=== PATIENT | female | born 1960 | race Caucasian/White ===

== ENCOUNTER → 2016-06-22 | Outpatient (CLI) | payer OTHER ==
[2016-06-22 21:09] LABS: FREE T4 0.86 NG/DL (0.76-1.46); THYROXINE (T4) 8.9 UG/DL (4.5-12.0)
[2016-06-25 10:20] LABS: PROLACTIN 3.7 NG/ML
[2016-06-25 10:21] LABS: LUTEINIZING HORMONE 20.1 mIU/mL
[2016-06-25 10:22] LABS: FOLLICLE STIMULATING HORMONE 38.5 mIU/mL
== END ==
LOC: M LRY 16:16
PROVIDERS: ATTEND Nurse Practitioner Women's Health
DX: N92.6 Irregular menstruation, unspecified (principal)

== ENCOUNTER → 2016-08-06 | Outpatient (CLI) | payer OTHER ==
--- NOTE | 2016-08-06 09:35 | REPMRS ---
Patient History The patient states she had a clinical breast exam in 2016. No known family history of cancer. Benign core biopsy of the right breast, 2010. Took hormonal contraceptives for 6 years. Digital Mammo Screening Bilat: August 06, 2016 - Exam #: [id number] Bilateral CC and MLO view(s) were taken. Technologist: Kait Barr, Technologist Prior study comparison: August 05, 2015, digital bilateral screening mammo, performed at [facility]. May 05, 2013, bilateral digital mammo screening bilat performed at [facility]. FINDINGS: The breast tissue is heterogeneously dense. This may lower the sensitivity of mammography. There is a moderate amount of heterogeneously dense fibroglandular tissue which is fairly symmetric. There is a stable mass projecting in the inferomedial quadrant of the right breast containing a calcification and a previously placed needle biopsy marker clip unchanged. There is no interval development of dominant mass, architectural distortion, or clustered microcalcification typical of malignancy. There has been no change in the appearance of the mammogram from the prior studies. ASSESSMENT: BI-RADS/ACR category 1 mammogram. Negative. Recommendation Routine screening mammogram of both breasts in 1 year (for women over age 40). This mammogram was interpreted with the aid of an FDA-approved computer-aided dectection system. Electronically Signed By: Kaiden Martinez MD 08/06/16 0934
== END ==
LOC: M RAD 08:36
PROVIDERS: ATTEND Nurse Practitioner Women's Health
DX: Z12.39 Encounter for other screening for malignant neoplasm of breast (principal); Z92.0 Personal history of contraception

== ENCOUNTER → 2018-07-07 | Outpatient (CLI) | payer OTHER ==
--- NOTE | 2018-07-07 16:01 | REP ---
BILATERAL SCREENING MAMMOGRAM WITH 3D TOMOSYNTHESIS: Bilateral screening mammogram with 3D tomosynthesis performed. Comparison 08/06/3016 as well as other prior exams. Breast parenchyma is heterogeneously dense limiting the sensitivity of the mammogram. Metallic clips are again seen in the inferomedial right breast from a prior benign biopsy. No new findings are seen in the right breast. In the left breast laterally at about 3 to 4 o'clock there is a fairly well circumscribed nodule 1.3 cm in diameter, located in the mid third of the breast. On the left MLO view posteriorly there is a partially imaged nodular opacity with the imaged portion having a maximum diameter of 1.4 cm. Margins are slightly irregular. No clustered microcalcifications are seen bilaterally. IMPRESSION: BIRADS 0: BI-RADS/ACR category 0 mammogram, Incomplete: Need additional imaging evaluation and/or prior mammograms for comparison. In the left breast at 3 to 4 o'clock position there is a well circumscribed nodule 1.3 cm in diameter. Recommend spot compression views and ultrasound to further evaluate. Far posteriorly on the left MLO view a partially imaged nodular opacity is seen, with the visualized portion having a maximum diameter of 1.4 cm. Visualized margins are slightly irregular. Recommend repeat left MLO and axillary CC views, with other views possibly necessary. This mammogram was interpreted with the aid of an FDA-approved computer-aided detection system. The patient states she/he had a clinical breast exam in 07/2018. The patient letter being requested is M0. iJmmy lifetime risk of breast cancer 10.9%. Electronically Signed by Shahriar Nagy MD 07/08/2018 10:25 A
== END ==
LOC: M RAD 13:33
PROVIDERS: ATTEND Nurse Practitioner Women's Health
DX: Z12.31 Encounter for screening mammogram for malignant neoplasm of breast (principal); N63.20 Unspecified lump in the left breast, unspecified quadrant

== ENCOUNTER → 2018-07-24 | Outpatient (CLI) | payer OTHER ==
--- NOTE | 2018-07-24 10:41 | REP ---
DIAGNOSTIC MAMMOGRAM, LEFT BREAST WITH LEFT BREAST ULTRASOUND: Multiple additional views of the left breast are performed including repeat left MLO view as well as exaggerated medial and lateral CC views. Correlation made with the recent mammogram of 07/07/2018 and compared with multiple other prior studies dating back to 02/21/2007. A fairly well-circumscribed nodule is confirmed in the region of the 3-o'clock position of the left breast about 4-5 cm from the nipple. Visualized margins are fairly well-circumscribed but some of the margins are obscure by the adjacent dense fibroglandular tissue. More posteriorly, in the inferior left axillary tail region, once again, there is a partially imaged nodular opacity which demonstrates mildly irregular margins. This is only seen on the repeat left MLO view and cannot be identified on any other view. Approximated diameter is 1.5 cm. Real-time sonographic evaluation of the outer left breast is performed to evaluate these two nodules. At the 3-o'clock position, 4-5 cm from the nipple there are two adjacent cysts measuring 1.0 and 0.9 cm, benign. However, more posteriorly, there is a heterogenous hypoechoic mass with mildly irregular margins and internal arterial flow with duplex Doppler evaluation. This is approximately 9 cm from the nipple and corresponds to the partially imaged nodule on the left MLO view. It measures 1.8 x 1.6 x 1.7 cm. This appears suspicious. IMPRESSION: BIRADS 4: BI-RADS/ACR category 4 mammogram. Suspicious Abnormality - biopsy should be considered. An anterior nodule in the lateral left breast corresponds to a simple benign cyst. However, posteriorly and somewhat inferiorly, in the region of the left axillary tail, the nodule partially seen on mammography represent a solid suspicious mass by ultrasound. Recommend ultrasound-guided biopsy with clip placement. Postprocedure mammogram should be performed. Patient letter M4. Electronically Signed by Shahriar Nagy MD 07/24/2018 04:01 P
== END ==
LOC: M RAD 08:53
PROVIDERS: ATTEND Nurse Practitioner Women's Health
DX: R92.2 Inconclusive mammogram (principal)

== ENCOUNTER → 2018-10-23 | Outpatient (REF) | payer OTHER ==
[2018-10-23 10:26] LABS: ALBUMIN 3.6 GM/DL (3.2-5.2); ALT/SGPT 24 U/L (12-78); BILIRUBIN,TOTAL 0.3 MG/DL (0.2-1.0); BLOOD UREA NITROGEN 10 MG/DL (7-18); CALCIUM LEVEL 9.4 MG/DL (8.5-10.1); CARBON DIOXIDE LEVEL 30 MEQ/L (21-32); CHLORIDE LEVEL 108 MEQ/L (98-107); CHOLESTEROL LEVEL 181 MG/DL (<200); CHOLESTEROL RISK RATIO 4.113 (<5); CREATININE FOR GFR 0.63 MG/DL (0.55-1.30); GLOMERULAR FILTRATION RATE > 60.0 (>51); GLUCOSE, FASTING 86 MG/DL (70-100); HDL CHOLESTEROL 44 MG/DL (>40); LDL CHOLESTEROL 115 MG/DL (<100); NON-HDL-C 137 MG/DL; POTASSIUM SERUM 4.7 MEQ/L (3.5-5.1); SODIUM LEVEL 143 MEQ/L (136-145); TOTAL PROTEIN 6.7 GM/DL (6.4-8.2); TRIGLYCERIDES LEVEL 112 MG/DL (<150)
== END ==
LOC: M SFHCPLAZ 08:26
PROVIDERS: ATTEND Family Medicine
DX: Z13.1 Encounter for screening for diabetes mellitus (principal); Z13.220 Encounter for screening for lipoid disorders; Z11.59 Encounter for screening for other viral diseases
CPT/HCPCS: 36415; 80053; 80061; G0472

== ENCOUNTER 2018-11-23 12:42 | Emergency (ER) | payer OTHER ==
[~2018-11-23] VITALS: Ht 157.5 cm; Wt 66.0 kg
[2018-11-23] MEDS ORDERED: LORA0.5T11 (12:58)
[2018-11-23] MEDS ORDERED: ONDA4TAB5 (12:58)
[2018-11-23] MEDS ORDERED: PRIL20TA2 PO (12:58)
[2018-11-23] MEDS ORDERED: ACETAMINOPHEN 500 MG TAB PO ONE (16:00)
[2018-11-23 16:04] LABS: HEMATOCRIT 31.8 % (36.0-47.0); HEMOGLOBIN 10.4 g/dl (12.0-15.5); MEAN CORPUSCULAR HEMOGLOBIN 28.9 pg (27.0-33.0); MEAN CORPUSCULAR HGB CONC 32.7 g/dl (32.0-36.5); MEAN CORPUSCULAR VOLUME 88.3 fl (80.0-96.0); PLATELET COUNT, AUTOMATED 171 10^3/uL (150-450)
[2018-11-23 16:09] LABS: WHITE BLOOD COUNT 35.2 10^3/uL (4.0-10.0)
[2018-11-23 16:34] LABS: BLOOD UREA NITROGEN 10 MG/DL (7-18); CALCIUM LEVEL 8.5 MG/DL (8.5-10.1); CARBON DIOXIDE LEVEL 30 MEQ/L (21-32); CHLORIDE LEVEL 108 MEQ/L (98-107); GLOMERULAR FILTRATION RATE > 60.0 (>51); GLUCOSE, FASTING 77 MG/DL (70-100); POTASSIUM SERUM 4.1 MEQ/L (3.5-5.1); SODIUM LEVEL 144 MEQ/L (136-145)
[2018-11-23 17:25] VITALS: BP 139/91
[2018-11-23 17:35] LABS: ATYPICAL LYMPH 1 % (0-5); LYMPHOCYTES 1 % (16-52); NEUTROPHILS 98 % (35-75)
[2018-11-23 17:36] LABS: PLATELET ESTIMATE NORMAL (NORMAL); TOXIC GRANULATION 3+
[2018-11-23 17:38] LABS: ANISOCYTOSIS 2+
== END 2018-11-23 17:44 | disposition home or self-care (01) ==
LOC: M ED 12:42
DX: R39.198 Other difficulties with micturition (principal); D05.10 Intraductal carcinoma in situ of unspecified breast; D72.829 Elevated white blood cell count, unspecified; R51 Headache; Z79.899 Other long term (current) drug therapy

== ENCOUNTER → 2018-12-04 | Outpatient (CLI) | payer OTHER ==
[~2018-12-04] MED LIST: LORA0.5T11; ONDA4TAB5; PRIL20TA2 PO
[2018-12-04 07:25] LABS: HEMATOCRIT 31.4 % (36.0-47.0); HEMOGLOBIN 10.4 g/dl (12.0-15.5); MEAN CORPUSCULAR HEMOGLOBIN 30.5 pg (27.0-33.0); MEAN CORPUSCULAR HGB CONC 33.1 g/dl (32.0-36.5); MEAN CORPUSCULAR VOLUME 92.1 fl (80.0-96.0); PLATELET COUNT, AUTOMATED 146 10^3/uL (150-450); RED BLOOD COUNT 3.41 10^6/uL (4.00-5.40)
[2018-12-04 07:57] LABS: ALBUMIN 3.5 GM/DL (3.2-5.2); ALT/SGPT 50 U/L (12-78); BILIRUBIN,TOTAL 0.4 MG/DL (0.2-1.0); BLOOD UREA NITROGEN 9 MG/DL (7-18); CALCIUM LEVEL 8.9 MG/DL (8.5-10.1); CARBON DIOXIDE LEVEL 31 MEQ/L (21-32); CHLORIDE LEVEL 108 MEQ/L (98-107); CREATININE FOR GFR 0.73 MG/DL (0.55-1.30); GLOMERULAR FILTRATION RATE > 60.0 (>51); GLUCOSE, FASTING 90 MG/DL (70-100); POTASSIUM SERUM 3.9 MEQ/L (3.5-5.1); SODIUM LEVEL 144 MEQ/L (136-145); TOTAL PROTEIN 6.4 GM/DL (6.4-8.2)
[2018-12-04 08:02] LABS: LYMPHOCYTES 2 % (16-52); MONOCYTES 9 % (0-8); NEUTROPHILS 89 % (35-75)
[2018-12-04 08:03] LABS: POLYCHROMASIA 1+
[2018-12-04 08:05] LABS: PLATELET ESTIMATE NORMAL (NORMAL); POIKILOCYTOSIS 1+
== END ==
LOC: M LAB 06:51
PROVIDERS: ATTEND Internal Medicine Hematology & Oncology
DX: C50.512 Malignant neoplasm of lower-outer quadrant of left female breast (principal)

== ENCOUNTER → 2019-02-24 | Outpatient (CLI) | payer OTHER ==
--- NOTE | 2019-02-25 07:14 | RADONC ---
RADIATION ONCOLOGY CONSULTATION DATE: 02/24/2019 CHART NUMBER: [id number] DIAGNOSIS: Infiltrating ductal carcinoma, left breast located at the 5 o'clock position, status post core needle biopsy in July of 2018, revealing an infiltrating ductal carcinoma metaplastic histology, grade 3, ER/OK negative, HER2/bev negative (triple negative), grade 3 and located at the 5 o'clock position very close to the posterior aspect of the breast. STAGE: Clinical IIB, T2, N0, M0 ICD-10 CODE: C50.512. ECOG PERFORMANCE STATUS: 0 HISTORY OF PRESENT ILLNESS: The patient is a 59-year-old female who presented to her primary care physician after a mammogram obtained revealed a suspicious mass at the 5 o'clock position of the left breast. The mass measured radiographically approximately 2.3 cm in greatest dimension. The patient underwent a core biopsy in early August of this year which confirmed the presence of an infiltrating ductal carcinoma/metaplastic carcinoma. It was noted to be a grade 3 out of 3. There was no evidence of intraductal component. Microcalcifications were not identified nor was there evidence of lymphovascular invasion. The tumor was noted to be triple negative. It is my understanding at the time of the biopsy that no axillary or sentinel lymph node was able to be biopsied at that time. The patient was referred to her medical oncologist and she received Adriamycin, Cytoxan chemotherapy for approximately four cycles followed by Taxol. Initially, Taxol was given every 2 weeks, but because of poor tolerance which included significant peripheral neuropathy and lower extremity swelling, the Taxol was given at a lower dose with longer treatment regimen, but was felt to be most likely better tolerated. She completed her chemotherapy on January 23 and her neuropathies have improved. The neoadjuvant chemotherapy was started on 09/26/2018 and as mentioned above, completed on 01/23/2019. It was noted that during this period of time the tumor mass had reduced in size. Previously an ultrasound had confirmed the tumor mass prior to cycle one being 2.3 x 2.2 x 1.9 cm and after chemotherapy it was down to 1.6 x 1.6 x 1.2 cm. Further reduction after cycle four, which was delivered on 11/17/2018, revealed a measurement of 1.1 x 1.3 x 0.7 cm. After the completion of chemotherapy, it was attempted to perform a sentinel node biopsy or an excisional biopsy which was not performed yet. It is my understanding that she is scheduled to undergo an excision of the tumor primary with removal of selected lymph nodes tomorrow on 02/25/2019. She comes to us today to discuss the logistics of her adjuvant local regional radiotherapy which will be a part of her multimodality treatment plan. PAST MEDICAL HISTORY: section 10/26/1991. Tubal ligation 05/06/1992. Colonoscopy 09/28/2015. Mammogram 07/07/2018, 07/24/2018 and 08/27/2018. ALLERGIES: Adhesive tape. FAMILY HISTORY OF CANCER: Father was diagnosed with lung cancer at the age of 43. Paternal grandmother diagnosed with cancer of the colon at the age of 70. The patient's uncle diagnosed with colon cancer at the age of 60. The patient's aunt diagnosed with breast cancer at the age of 45. GYNECOLOGIC HISTORY: Menarche at the age of 12 and she was 31 years old when she experienced her first . The patient has been three times with two live births. She has never used any form of estrogen therapy. SOCIAL HISTORY: The patient drinks, prior to her current illness, approximately eight drinks per week. She is a manager branch for an office. MEDICATIONS: - Ativan 0.5 mg tablets p.r.n. anxiety, insomnia and nausea - B complex with vitamin C one p.o. twice daily - Prilosec OTC 20 mg daily delayed release REVIEW OF SYSTEMS: RESPIRATORY: She denies coughing, dyspnea, hemoptysis, hiccups, pleuritic pain or wheezing. PSYCHIATRIC: Denies delusions, hallucinations or mood swings. NEUROLOGIC: Denies disorientation, dizziness, changes in gait, headaches, insomnia memory loss. She does complain of neuropathy from the chemotherapy, which is improving. She still has significant neuropathy with regards to her fingers and hands and to some degree involving her feet. Paralysis denied. She also denies seizure activity, sensory problems or strokes. MUSCULOSKELETAL: She had pain in her lower extremities with some swelling during the chemotherapy, but denies range of motion issues. INTEGUMENTARY: She has alopecia from her chemotherapy, but denies blisters or bruising. She has some dry skin. Denies facial burning. She has a toenail involving her left foot which is affected by the chemotherapy and is dark in color. She denies significant rashes or pruritus, but does have some photosensitivity in general. HEMATOLOGIC AND LYMPHATIC: She denies easy bruising or lymphadenopathy. HEAD: The patient has alopecia secondary to her chemotherapy. GENITOURINARY: Denies dysuria, frequency genital masses, hematuria, incontinence, nocturia, renal stones, sexual dysfunction, urgency, changes in urine color, vaginal discharge. GASTROINTESTINAL: Denies bowel habit changes, constipation, diarrhea, heartburn, dyspepsia, hematemesis, hematochezia, hemorrhoids, melena, GI bleeding. She did have nausea with her chemotherapy. She did have pain in her lower extremities and hands, but also some abdominal issues when she was undergoing chemotherapy. She denies early satiety or vomiting. ENMT: She denies ear pain, epistaxis esophagitis, hearing difficulty, mouth dryness, oral bleeding, otitis, sinusitis, sputum production, stomatitis, alteration of taste or tinnitus. ENDOCRINE: She denies diabetes, hot flashes, menstrual irregularities or thyroid disease. CONSTITUTIONAL: The patient has a reduced appetite and is noted to report significant fatigue during the chemotherapy, but is improving. She denies fever. She had some lethargy and feelings of malaise. Denies night sweats, rigors, chills or significant weight change. CARDIOVASCULAR: Denies arrhythmias, chest pain, dyspnea, edema, orthopnea or palpitations. BREASTS: She denied any nipple inversion, nipple discharge and she could not actually palpate a breast mass until she was directed to the area. She denied skin erythema in the area locally or pain. EXAMINATION FINDINGS: VITALS: O2 saturation 98% on room air. Diastolic 95, systolic 146, respirations 18, pulse 72, temperature 97.9, weight 146.4, height 62 inches. HEENT: Alopecia secondary to the chemotherapy. LYMPHATICS: No palpable peripheral lymphadenopathy is appreciated in the cervical, supraclavicular, axillary or inguinal lymph node chains. BREASTS: The breasts are bilateral and symmetric without palpable masses. LUNGS: Clear to auscultation and percussion. HEART: Regular without murmurs. ABDOMEN: Without evidence of hepatomegaly, masses, deep abdominal tenderness. EXTREMITIES: Without cyanosis. She does not have significant edema. Her left large toenail is blackened. 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 She has decreased sensation in both her feet and more to a degree involving her hands. 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 The tumor measured 13 mm in greatest dimension, grade 3, no evidence of DCIS, microcalcifications lymphovascular invasion with negative ER, negative OK negative, HER2/bev (triple negative). She is status post neoadjuvant chemotherapy in the form of Adriamycin, Cytoxan and Taxol. These therapies were tolerated fairly well with the exception of some peripheral neuropathy. She is planned to undergo surgical removal of the area of tumor involvement and selected lymph nodes. She has an appointment for surgery tomorrow on February 25. PLAN OF RADIOTHERAPY: After appropriate healing, the patient will be brought back to our department for simulation and after treatment planning the patient can initiate her radiotherapy. We plan to deliver a dose of between 4800 to 5000 cGy to the entire breast and peripheral lymphatics followed by a boost to the lumpectomy site of an additional approximately 1000 to 1200 cGy. I would like to employee IMRT under this particular case as the patient has quite a laterally located tumor primary and in order to encompass the entire breast and the area of lumpectomy, IMRT will give us a more homogeneous dose. In addition, the use of IMRT would be beneficial in allowing us to obtain a more homogeneous distribution of dose of avoiding heart and lung located on the left side. I encouraged the use of IMRT as the use of IMRT will greatly improve the chances of dose homogeneity involving the left breast and help in reducing the doses to her heart and lung. The indications, possible side effects, as well as, alternatives to radiotherapy have been explained thoroughly to the patient including, but not necessarily limited to skin erythema, fatigue, increased fragility of the ribs, the possibility of radiation pneumonitis, the possibility of left-sided lymphedema and the possibility of pain and increased fibrosis within the breast. She understands these potential complications and is willing to proceed as outlined. Thank you for referring this very krystal lady to us and allowing us the opportunity of participation in her overall management. cc: MD Ivy Kapadia, RICHARD MCKENNA
== END ==
LOC: M ONCR 08:57
PROVIDERS: ATTEND Radiology Radiation Oncology
DX: C50.512 Malignant neoplasm of lower-outer quadrant of left female breast (principal); G90.09 Other idiopathic peripheral autonomic neuropathy; R53.81 Other malaise; Z80.2 Family history of malignant neoplasm of other respiratory and intrathoracic organs; Z80.0 Family history of malignant neoplasm of digestive organs; Z80.3 Family history of malignant neoplasm of breast

== ENCOUNTER → 2019-04-09 | Outpatient (CLI) | payer OTHER | LOC: M ONCR 14:01 | PROVIDERS: ATTEND Radiology Radiation Oncology | DX: C50.512 Malignant neoplasm of lower-outer quadrant of left female breast (principal) ==

== ENCOUNTER → 2019-05-05 | Outpatient (RCR) | payer OTHER ==
--- NOTE | 2019-04-10 09:34 | RADONC ---
RADIATION ONCOLOGY FOLLOWUP CONSULTATION DATE OF SERVICE: 04/09/2019 CHART NUMBER: [id number] DIAGNOSIS: Infiltrating ductal carcinoma left breast, lower outer quadrant of the left breast. CLINICAL STAGE: II B, T2N0M0 ' ICD-10 CODE: C50.512 ECOG STATUS: 0 HISTORY OF PRESENT ILLNESS: Ms. Enriquez is a 58-year-old female presented with a palpable mass in the 5 o'clock position of the left breast. A mammography was performed, which showed 2.3 cm mass in that location. Core biopsy of the lesion was performed in August of 2018, which showed infiltrating ductal carcinoma, metaplastic carcinoma, grade 3 of 3, triple negative. The patient received neoadjuvant chemotherapy with dose-dense AC x 4 followed by Taxol. Initially, she developed significant side effects with Taxol. So, Taxol was given every 2 weeks and tolerated well. She completed chemotherapy on 01/23/2019. There was an objective response based on follow up imaging studies as well as clinically. The patient had a lumpectomy and sentinel node biopsies on02/25/2019. Pathology reported invasive carcinoma metaplastic with chondroid elements. Histologic overall grade 3, margins were negative , closest margin was 0.5mm from ant and lateral inferior margin. no angiolymphatic invasion identified. 1/2 lymphnode was positive metastasis. staged [id number]. On 03/18/2019, axillary node dissection was performed, Pathology reported all 17 lymphnodes were negative for mets and additional inferior and lateral margins were negative. PAST MEDICAL HISTORY: She had a 10/26/1991, tubal ligation 05/06/1992, colonoscopy 09/28/2015, mammography 07/07/2018. FAMILY HISTORY OF CANCER: Father was diagnosed with lung cancer at the age of 43. GYNECOLOGIC HISTORY: She is 3, para 2. Menarche at 12 years of age. First child was born at [id number]. REVIEW OF SYSTEMS: GENERAL: She denies any recent weight changes, fever or fatigue. HEENT: Denies hearing loss or visual problems. RESPIRATORY: Denies dyspnea, coughing shortness of breath or wheezing. CARDIOVASCULAR: Denies palpitation or chest pain. PSYCHIATRIC: Denies delusions, anxiety. NEUROLOGICAL: Denies dizziness, headache. MUSCULOSKELETAL: Denies any bone pain. GENITOURINARY: Denies urinary frequency, dysuria, hematuria. GASTROINTESTINAL: Denies bowel habits constipation, hemorrhoids. CONSTITUTIONAL: She denies fatigue. EXAMINATION: She is well-developed, well-nourished, in not in apparent distress. HEENT: There is no palpable lymphadenopathy in the neck, axilla bilaterally. BREASTS: Both breasts are the same size. Noted a lumpectomy scar in the outer lower quadrant of the left breast. There are no other lumps or tenderness in either breast. LUNGS: Are clear. CHEST: Irregular rhythm and rate. ABDOMEN: Is soft, nontender, nondistended. Without any palpable mass or organomegaly. EXTREMITIES: Without swelling, cyanosis. ASSESSMENT AND RECOMMENDATIONS: Ms. Enriquez is a 58-year-old woman, 3, para 2, has the diagnosis of triple negative left breast CA clinical stage T2N0M0. She is S/P neoadjuvant chemotherapy with a dose-dense AC followed by Taxol which was completed on 01/23/2019. The patient underwent lumpectomy and sentinel node biopsy 0n 02/25/2019 followed by axillary node dissection, which was performed on 03/18/2019. The patient returned and examination revealed the axillary dissection scar is well healed. We discussed again nature of the disease, discussed that mastectomy and lumpectomy followed by radiation therapy is equally effective and they are standard of care. Recommend treatment by Dr. Adrienne pa. I explained the procedure and possible side effects associated with radiation therapy and had given her a chance to ask questions and concerns and they were answered to her satisfaction. [facility] CENTERNathen
--- NOTE | 2019-04-22 10:02 | RADONC ---
RADIATION ONCOLOGY PROGRESS NOTE DATE: 04/20/2019 CHART NUMBER: [id number] PROGRESS NOTE: Ms. Enriquez is presently at a dose of 540 cGy to her left breast and is tolerating treatments quite well at this point with no complaints related to her radiation therapy. She is having no breast or bone pain. REVIEW OF SYSTEMS: The patient's review of systems is noncontributory. Denies nausea, vomiting, fevers, chills, night sweats, diplopia, headaches, anxiety or depression, anorexia, weight loss, visual disturbances, chest pain, urinary or bowel difficulties, bone pain, or neurological problems. PHYSICAL EXAMINATION: The patient's skin is in good condition with no evidence of radiation change present. There is no moist or dry desquamation. The remainder of her physical exam remains unchanged. Ms. Enriquez is tolerating treatments quite well and radiation will continue as scheduled.
== END ==
LOC: M ONCR 04-09 14:39
PROVIDERS: ATTEND Radiology Radiation Oncology
DX: C50.512 Malignant neoplasm of lower-outer quadrant of left female breast (principal)

== ENCOUNTER 2019-06-04 15:50 | Outpatient (RCR) | payer OTHER ==
--- NOTE | 2019-05-12 09:01 | RADONC ---
RADIATION ONCOLOGY PROGRESS NOTE DATE OF SERVICE: 05/11/2019 CHART NUMBER: [id number] Ms. Enriquez is presently at a dose of 2700 cGy to her left breast and is tolerating treatments quite well at this point with no complaints related to her radiation therapy. She is having no breast or bone pain. The patient's review of systems is noncontributory. Denies nausea, vomiting, fevers, chills, night sweats, diplopia, headaches, anxiety or depression, anorexia, weight loss, visual disturbances, chest pain, urinary or bowel difficulties, bone pain, or neurological problems. PHYSICAL EXAMINATION: The patient's skin is in good condition with no evidence of radiation change present. There is no moist or dry desquamation. There is some minimal erythema present. The remainder of her physical exam remains unchanged. The patient is tolerating treatments quite well and radiation will continue as scheduled.
--- NOTE | 2019-05-19 10:37 | RADONC ---
RADIATION ONCOLOGY PROGRESS NOTE DATE OF SERVICE: 05/18/2019 CHART NUMBER: [id number]. PROGRESS NOTE: Ms. Enriquez is presently at a dose of 3600 cGy to her left breast and is tolerating treatments quite well at this point with no complaints related to her radiation therapy. She is having no breast or bone pain. REVIEW OF SYSTEMS: The patient's review of systems is noncontributory. She denies nausea, vomiting, fevers, chills, night sweats, diplopia, headaches, anxiety or depression, anorexia, weight loss, visual disturbances, chest pain, urinary or bowel difficulties, bone pain, or neurological problems. PHYSICAL EXAMINATION: The patient's skin is in good condition with no evidence of moist or dry desquamation. The remainder of her physical exam remains unchanged. Ms. Enriquez is tolerating treatments quite well, and radiation will continue as scheduled.
--- NOTE | 2019-05-22 07:15 | RADONC ---
RADIATION ONCOLOGY SIMULATION NOTE: DATE: 05/21/2019 CHART NUMBER: [id number] Ms. Enriquez was taken to the linear accelerator today for clinical setup of her electron beam left breast boost field. Setup was accomplished without difficulty or discomfort. Radiation treatment planning is underway and radiation treatments will begin subsequently. An immobilization device was created and be used out the course of treatment. It was created without difficulty or discomfort. I was physically present throughout the course of clinical setup simulation.
--- NOTE | 2019-05-26 10:00 | RADONC ---
RADIATION ONCOLOGY PROGRESS NOTE DATE: 05/25/2019 CHART #: [id number] Ms. Enriquez is presently at a dose of 4320 cGy to her left breast and is tolerating treatments quite well at this point with no complaints related to her radiation therapy. She is having no significant breast or bone pain. REVIEW OF SYSTEMS: The patient's review of systems is noncontributory. Denies nausea, vomiting, fevers, chills, night sweats, diplopia, headaches, anxiety or depression, anorexia, weight loss, visual disturbances, chest pain, urinary or bowel difficulties, bone pain, or neurological problems. PHYSICAL EXAMINATION: The patient's skin is in excellent condition with no evidence of moist or dry desquamation. There is some erythema present. The remainder of her physical exam remains unchanged. Ms. Enriquez is tolerating her treatments quite well and radiation will continue as scheduled.
--- NOTE | 2019-06-03 08:33 | RADONC ---
RADIATION ONCOLOGY PROGRESS NOTE DATE: 06/01/2019 CHART NUMBER: [id number] PROGRESS NOTE: Ms. Enriquez is presently at a dose of 5460 cGy to her left breast primary site region and is tolerating treatments quite well at this point with no complaints related to her radiation therapy. She is having no significant breast or bone pain. REVIEW OF SYSTEMS: The patient's review of systems is noncontributory. Denies nausea, vomiting, fevers, chills, night sweats, diplopia, headaches, anxiety or depression, anorexia, weight loss, visual disturbances, chest pain, urinary or bowel difficulties, bone pain, or neurological problems. PHYSICAL EXAMINATION: The patient's skin is in good condition with no evidence of moist or dry desquamation. The remainder of physical exam remains unchanged. Ms. Enriquez is tolerating treatments quite well and radiation will continue as scheduled.
[~2019-06-04 15:50] MED LIST changes: -LORA0.5T11; +LORA0.5T5; +ONDA-83; -ONDA4TAB5
--- NOTE | 2019-06-06 09:13 | RADONC ---
RADIATION ONCOLOGY TREATMENT SUMMARY DATE: 06/04/2019 CHART NUMBER: [id number] DIAGNOSIS: Infiltrating ductal carcinoma of the left breast, lower outer quadrant of left breast. STAGE: IIB, T2N0M0. ECOG PERFORMANCE STATUS: 0. TREATMENT SUMMARY: Ms. 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 We treated the patient to the left breast for a total dose of 4860 cGy delivered in 27 fractions of 180 cGy each over 41 elapsed days from 04/16/2019 through 05/27/2019. The patient's left breast was treated on a linear accelerator utilizing a 6 MV photon beam via an IMRT technique. Following completion of 4860 cGy the entire left breast the primary site was boosted for an additional 1200 cGy delivered in 6 fractions of 200 cGy each from 05/28/2019 to 06/04/2019. The primary site boost was treated on a linear accelerator utilizing a 16 MeV electron beam prescribed to the 90% isodose line via en face technique. This brought the primary site to a total dose of 6060 cGy delivered in 33 fractions over 48 elapsed days from 04/16/2019 through 06/04/2019. Ms. Enriquez tolerated her treatments quite well and was able to complete therapy as prescribed. I have scheduled the patient to see me again in 1 month for further followup. She will also continue to be followed by her other physicians as well. cc: MD Gold Sifuentes MD Kate E. Skipton, MD
== END 2019-06-05 ==
LOC: M ONCR 15:50
PROVIDERS: ATTEND Radiology Radiation Oncology
DX: C50.512 Malignant neoplasm of lower-outer quadrant of left female breast (principal)

== ENCOUNTER → 2019-08-10 | Outpatient (CLI) | payer OTHER ==
[2019-08-10 11:52] LABS: HEMATOCRIT 36.1 % (36.0-47.0); HEMOGLOBIN 12.2 g/dl (12.0-15.5); MEAN CORPUSCULAR HEMOGLOBIN 30.5 pg (27.0-33.0); MEAN CORPUSCULAR HGB CONC 33.8 g/dl (32.0-36.5); MEAN CORPUSCULAR VOLUME 90.3 fl (80.0-96.0); PLATELET COUNT, AUTOMATED 190 10^3/uL (150-450)
[2019-08-10 12:24] LABS: ALBUMIN 3.7 GM/DL (3.2-5.2); ALT/SGPT 19 U/L (12-78); BILIRUBIN,TOTAL 0.6 MG/DL (0.2-1.0); BLOOD UREA NITROGEN 8 MG/DL (7-18); CALCIUM LEVEL 9.1 MG/DL (8.5-10.1); CARBON DIOXIDE LEVEL 30 MEQ/L (21-32); CHLORIDE LEVEL 109 MEQ/L (98-107); GLOMERULAR FILTRATION RATE > 60.0 (>51); GLUCOSE, FASTING 78 MG/DL (70-100); POTASSIUM SERUM 4.1 MEQ/L (3.5-5.1); SODIUM LEVEL 142 MEQ/L (136-145); TOTAL PROTEIN 6.6 GM/DL (6.4-8.2)
== END ==
LOC: M LRY 09:53
PROVIDERS: ATTEND Nurse Practitioner Adult Health
DX: C50.512 Malignant neoplasm of lower-outer quadrant of left female breast (principal)

== ENCOUNTER → 2019-09-01 | Outpatient (CLI) | payer OTHER ==
[2019-09-01 17:41] LABS: HEMATOCRIT 38.1 % (36.0-47.0); HEMOGLOBIN 13.1 g/dl (12.0-15.5); MEAN CORPUSCULAR HEMOGLOBIN 31.8 pg (27.0-33.0); MEAN CORPUSCULAR HGB CONC 34.4 g/dl (32.0-36.5); MEAN CORPUSCULAR VOLUME 92.5 fl (80.0-96.0); PLATELET COUNT, AUTOMATED 193 10^3/uL (150-450); RED BLOOD COUNT 4.12 10^6/uL (4.00-5.40); WHITE BLOOD COUNT 4.3 10^3/uL (4.0-10.0)
[2019-09-01 17:46] LABS: ALT/SGPT 20 U/L (12-78); BILIRUBIN,TOTAL 0.9 MG/DL (0.2-1.0); BLOOD UREA NITROGEN 8 MG/DL (7-18); CARBON DIOXIDE LEVEL 30 MEQ/L (21-32); CHLORIDE LEVEL 106 MEQ/L (98-107); CREATININE FOR GFR 0.81 MG/DL (0.55-1.30); GLOMERULAR FILTRATION RATE > 60.0 (>51); GLUCOSE, FASTING 104 MG/DL (70-100); POTASSIUM SERUM 4.3 MEQ/L (3.5-5.1); SODIUM LEVEL 141 MEQ/L (136-145); TOTAL PROTEIN 7.2 GM/DL (6.4-8.2)
== END ==
LOC: M LRY 14:06
PROVIDERS: ATTEND Nurse Practitioner Adult Health
DX: C50.212 Malignant neoplasm of upper-inner quadrant of left female breast (principal)

== ENCOUNTER → 2019-09-21 | Outpatient (CLI) | payer OTHER ==
[2019-09-21 17:28] LABS: HEMATOCRIT 33.3 % (36.0-47.0); HEMOGLOBIN 11.4 g/dl (12.0-15.5); MEAN CORPUSCULAR HEMOGLOBIN 31.8 pg (27.0-33.0); MEAN CORPUSCULAR HGB CONC 34.2 g/dl (32.0-36.5); MEAN CORPUSCULAR VOLUME 92.8 fl (80.0-96.0); PLATELET COUNT, AUTOMATED 183 10^3/uL (150-450); RED BLOOD COUNT 3.59 10^6/uL (4.00-5.40); WHITE BLOOD COUNT 4.7 10^3/uL (4.0-10.0)
[2019-09-21 17:47] LABS: ALBUMIN 3.6 GM/DL (3.2-5.2); ALT/SGPT 23 U/L (12-78); BILIRUBIN,TOTAL 0.7 MG/DL (0.2-1.0); BLOOD UREA NITROGEN 15 MG/DL (7-18); CALCIUM LEVEL 8.7 MG/DL (8.5-10.1); CARBON DIOXIDE LEVEL 29 MEQ/L (21-32); CHLORIDE LEVEL 107 MEQ/L (98-107); GLOMERULAR FILTRATION RATE > 60.0 (>51); GLUCOSE, FASTING 123 MG/DL (70-100); POTASSIUM SERUM 3.7 MEQ/L (3.5-5.1); SODIUM LEVEL 142 MEQ/L (136-145); TOTAL PROTEIN 6.5 GM/DL (6.4-8.2)
== END ==
LOC: M LRY 15:27
PROVIDERS: ATTEND Nurse Practitioner Adult Health
DX: C50.512 Malignant neoplasm of lower-outer quadrant of left female breast (principal)

== ENCOUNTER → 2019-11-23 | Outpatient (CLI) | payer OTHER ==
[2019-11-24 12:54] LABS: ALBUMIN 3.6 GM/DL (3.2-5.2); ALT/SGPT 23 U/L (12-78); BILIRUBIN,TOTAL 0.7 MG/DL (0.2-1.0); BLOOD UREA NITROGEN 10 MG/DL (7-18); CARBON DIOXIDE LEVEL 29 MEQ/L (21-32); CHLORIDE LEVEL 109 MEQ/L (98-107); CREATININE FOR GFR 0.84 MG/DL (0.55-1.30); GLOMERULAR FILTRATION RATE > 60.0 (>51); GLUCOSE, FASTING 78 MG/DL (70-100); POTASSIUM SERUM 4.1 MEQ/L (3.5-5.1); SODIUM LEVEL 142 MEQ/L (136-145); TOTAL PROTEIN 6.4 GM/DL (6.4-8.2)
[2019-11-24 12:57] LABS: HEMOGLOBIN 12.3 g/dl (12.0-15.5); MEAN CORPUSCULAR HEMOGLOBIN 33.5 pg (27.0-33.0); MEAN CORPUSCULAR HGB CONC 32.4 g/dl (32.0-36.5); MEAN CORPUSCULAR VOLUME 103.5 fl (80.0-96.0); PLATELET COUNT, AUTOMATED 207 10^3/uL (150-450); RED BLOOD COUNT 3.67 10^6/uL (4.00-5.40); WHITE BLOOD COUNT 4.4 10^3/uL (4.0-10.0)
== END ==
LOC: M LRY 15:30
PROVIDERS: ATTEND Nurse Practitioner Adult Health
DX: C50.512 Malignant neoplasm of lower-outer quadrant of left female breast (principal)

== ENCOUNTER → 2020-06-12 | Outpatient (CLI) | payer OTHER ==
[~2020-06-12] MED LIST changes: +ASPI32ECTA PO
== END ==
LOC: M LABSMTC 10:00
PROVIDERS: ATTEND Anesthesiology
DX: Z01.812 Encounter for preprocedural laboratory examination (principal); Z20.822 Contact with and (suspected) exposure to COVID-19

== ENCOUNTER 2020-06-16 09:05 | Day surgery (SDC) | payer OTHER ==
[~2020-06-16] VITALS: Ht 157.5 cm; Wt 67.1 kg
[~2020-06-16 09:05] MED LIST changes: +LIDOCAINE 2% 100MG/5ML SDV (FOR ANES.) As Ordered ONE; +NS 1,000 ML IV ONE; +SIMETHICONE 40MG/0.6ML DROPS 30ML As Ordered ONE; +propofoL 200 MG/20 ML VIAL As Ordered ONE
--- OUTSIDE RECORDS SUMMARY | 2020-06-16 09:09 | CCD ---
Author Author Tate Meier MD [facility] Organization Tate Meier MD [facility] Address [address] [address] Phone Care Team Providers Care Guinea Pig Breeder Name Role Phone Chris LUIS, Debbie Yanes PP [phone] Freeman Aguilar DO Unavailable [phone] Reason for Referral No Reason for Referral Recorded Problems Includes: Active, inactive, and resolved Problems All Visits Onset Date - Time Resolved Date - Time Provider Co ndition Status Cataract Senile Nuclear 03/23/2020 - 12:00AM Freeman tomas DO Active Blepharitis Squamous 03/23/2020 - 12:00AM Freeman dupont DO Active Dry Eye Syndrome 03/23/2020 - 12:00AM Freeman sandoval DO Active Vitreous Disorders Degeneration 03/23/2020 - 12:00AM Yessy Aguilar DO Active Plan of Treatment Future Appointments Date Time Location Provider [facility] 04/07 12:40PM Tate Meier MD [facility] Freeman Aguilar DO Assessments Includes: Assessments for all patient encounters Findings Encounter Date Dry eye syndrome NEW PATIENT WITH REFERRAL with Freeman tomas DO 03/23/2020 Nuclear senile cataract NEW PATIENT WITH REFERRAL with Héctor Aguilar DO 03/23/2020 Squamous blepharitis right upper eyelid , right lower eyelid, left upper eyelid and left lower eyelid NEW PATIENT WITH REFERRAL with Freeman Aguilar DO 03/23/2020 Vitreous degeneration NEW PATIENT WITH REFERRAL with Freeman Aguilar DO 03/23/2020 Instructions Instructions not supported for this document typeNo Instructions Recorded Medical Equipment - Implanted Devices Includes: Current and historical DevicesNo Medical Equipment Recorded Medications Includes: Current and historical Medications Current Medications (continue as prescribed) Aspirin 300 MG Oral Tablet 03/23/2020 Provider: Diagnosis: Ativan 0.5 MG Oral Tablet 03/23/2020 Provider: Diagnosis: Lotemax 0.5% Ophthalmic Gel 03/23/2020 Provider: Freeman Aguilar DO Diagnosis: Dry eye syndrome of bilateral lacrimal glands One drop twice a day in both eyes Medications Administered Includes: Administered Medications in patient's chartNo Administered Medications Recorded Vital Signs Includes: Vital Signs from 03/23/2019 through 03/23/2020No Vital Signs Recorded For Specified Dates Results Includes: Results from 03/23/2019 through 03/23/2020No Results Recorded For Specified Dates History of Present Illness History of Present Illness not supported for this document typeNo History of Present Illness Recorded Social History Description Last Updated Alcohol use 2 glasses per week 03/23/2020 No tobacco use 03/23/2020 Not using drugs 03/23/2020 Smoking status : Never smoker 03/23/2020 Procedures and Surgical History Includes: Procedures from 03/23/2019 through 03/23/2020 Procedures Code Diagnosis Performing Provider Service Location Service Date Comprehensive Eye Exam 50428 DRY EYE SYNDROME, CATARACT SENILE NUCLEAR, VITREOUS DISORDERS DEGENERATION Freeman Aguilar DO 03/23/2020 Surgical History Last Updated Surgical / procedural history 1990, 2 Lumpe ctomies [id number], 03/23/2020 Medical History Includes: Medical History in patient's chart Description Last Updated Currently wearing eyeglasses 03/23/2020 Reported medical history Sarcoidosis 19 80s, Breast Cancer w/ Chemo & Radiation [id number] 03/23/2020 Family History Includes: Family History in patient's chart Description Last Updated Paternal history of family history of cancer 0 Review of Systems Review of Systems not supported for this document typeNo Review of Systems Recorded Mental Status Mental Status not supported for this document type Description Oriented to time, place, and person Difficulty reading fine print Functional Status Functional Status not supported for this document typeNo Functional Status Recorded Physical Exam Physical Exam not supported for this document typeNo Physical Exam Recorded Immunizations Includes: Immunizations in patient's chartNo Immunizations Recorded Allergies Includes: Active, inactive, and resolved AllergiesNo Known Allergies Encounters Includes: Encounters from 03/23/2019 through 03/23/2020 Encounter Provider Location Date Check-In Time Check-Out Time D iagnosis NEW PATIENT WITH REFERRAL Freeman Cesar MD [facility] 03/23/2020 2:10PM 3:39PM Dry Eye Syndrome, Ca taract Senile Nuclear, Blepharitis Squamous, Vitreous Disorders Degeneration Insurance Includes: Active Insurance Policies Plan Name Member ID Group # Subscriber Relationship Effective Da michael 1 - [employer] Care Management /PRIOR AUTHS NEEDED [id number] Juan Antonio Avitiaenson Self Advance Directives Includes: Current Advance DirectivesNo Advance Directives Recorded Health Concerns Includes: Active Health ConcernsNo Active Health Concerns Recorded Goals Includes: Active GoalsNo Active Goals Recorded Interventions Includes: Interventions for active GoalsNo Interventions Recorded Evaluations & Outcomes Includes: Evaluations & Outcomes for active GoalsNo Outcomes Recorded
--- OUTSIDE RECORDS SUMMARY | 2020-06-16 09:09 | CCD ---
Continuity of Care Document (CCD) Created on: 05/25/2020 Caroline Enriquez External Reference #: [id number] : [id number] Sex: Female Author Author Caroline LUND MD Organization Unknown Address [address] [place] [address] Phone [phone] Care Team Providers Care Personnel Worker Name Role Phone Debbie Perez M.D. [facility] [phone] Problems Description No Information Available Social History Type Date Description Comments Sex Unknown ETOH Use 2 A Week Tobacco Use Start: Unknown Denies Smoking Recreational Drug Use Denies Drug Use Allergies, Adverse Reactions, Alerts Active Allergies Reaction Severity Comments Date Tape Open Sores, Swelling 021 Medications Active Medications SIG Qnty Indications Ordering Provide r Date Ativan 0.5mg Tablets 1 tab po prn Unknown Aspirin 300 MG Tablet 1 tab po qd Unknown Immunizations Description No Information Available Vital Signs Date Vital Result Comment 05/25/2020 1:15pm BP Systolic 138 mmHg BP Diastolic 87 mmHg Heart Rate 87 /min Height 62 inches 5'2" Weight 153.12 lb BMI (Body Mass Index) 28.0 kg/m2 [place] Body Weight 110 lb Weight 69.457 kg BSA (Body Surface Area) 1.71 m2 Results Description No Information Available Procedures Description No Information Available Medical Devices Description No Information Available Encounters Description No Information Available Assessments Description No Information Available Plan of Treatment No Information Available Functional Status Description No Information Available Mental Status Description No Information Available Referrals Refer to Reason for Referral Status Appt Date Thaddeus Lund JR, MD COLONOSCOPY, EGD Created [phone] [address] [phone]
--- OUTSIDE RECORDS SUMMARY | 2020-06-16 09:09 | CCD ---
Author Author [facility] Organization 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 3814917356440722 Problem Insomnia due to medical condition G47.01 Active 25370137750923 ALLERGIES No Known Allergies ENCOUNTERS from 1960 to 2020-04-19 Encounter Location Date Provider Diagnosis [address] [address] 14 Apr, 2020 Debbie Perez Annual physical exam Z00.00 ; Ductal car cinoma in situ (DCIS) of left breast D05.12 ; Insomnia due to medical condition G47.01 ; Screening for colon cancer Z12.11 ; History of anemia Z86.2 ; Dry eyes H04.123 and Dyspepsia R10.13 IMMUNIZATIONS No Information SOCIAL HISTORY Tobacco Use: Social History Observation Description Date Details (start date - stop date) Never Smoker Sex Assigned At : Social History Observation Description Sex Assigned At Unknown Education: Question Answer Notes Level of Education: College Audit Question Answer Notes Total Score: 2 Interpretation: Alcohol Education Language: Question Answer Notes Languages spoken: Mauritanian Methodist: Question Answer Notes Methodist 33 None Domestic Violence: Question Answer Notes Status: Sexual Hx: Question Answer Notes Had sex in the last 12 months (vaginal, oral, or anal)? Yes Have you ever had an STD? No with Men only Use protection? No Drug and Alcohol Question Answer Notes Total Score: 0 Interpretation: No problems reported Tobacco Use: Question Answer Notes Are you a: never smoker REASON FOR REFERRAL No Information VITAL SIGNS Weight 148 lbs Apr, Height 62 in Apr, BMI 27.07 kg/m2 Apr, Heart Rate 78 /min Apr, Respiratory Rate 18 /min Apr, Temperature 96.4 degrees Fahrenheit Apr, Oximetry 95 Apr, Blood pressure systolic 128 mm Hg Apr, Blood pressure diastolic 80 mm Hg Apr, MEDICATIONS Medication SIG (Take, Route, Frequency, Duration) Notes Start Da te End Date Status Ativan 0.5 MG 1/2 tablet Orally as needed Active Lotemax 0.5 % 1 drop into affected eye Ophthalmic twice a day Active Aspirin 300mg 1 tab Oral daily Ac tive PROCEDURES No Information RESULTS No Results REASON FOR VISIT Annual, Reference #: [id number] MEDICAL (GENERAL) HISTORY Type Description Date Medical History Intermittent HTN in the past Medical History Left breast DCIS - Dr. Mittal/Dr. Chun [place] Medical History Reflux due to chemo Medical History Insomnia since cancer diagnosis Medical History Sebaceous cysts on scalp - Dr. Antwon sandoval [place] Medical History ASCVD risk 2.7% in 10/2018 Medical History Dry eyes with eye watering - Dr. Grant in Surgical History 1991 Surgical History bilateral tubal ligation 1993 Surgical History Colonoscopy - hemorrhoids, d iverticulosis, repeat in 5 years; Dr. Lund 06/2015 Surgical History chemo port insertion 09/2018 Surgical History Lumpectomy in left breast wi th removal of 2 axillary lymph nodes 02/25/2019 Surgical History Left axilary dissection with removal of 16 lymph nodes and wider excision at site of prior lumpectomy 03/18/2019 Hospitalization History surgery related Goals Section No Information Health Concerns No Information MEDICAL EQUIPMENT No Information MENTAL STATUS No Information FUNCTIONAL STATUS No Information ASSESSMENTS Encounter Date Diagnosis Assessment Notes Treatment Notes Treatm ent Clinical Notes Apr, Annual physical exam (ICD-10 - Z00.00) Medical, surgical, and family histories were reviewed and updated. See preventative section. Apr, Ductal carcinoma in situ (DCIS) of left breast ( ICD-10 - D05.12) Being followed by her Oncologist with mammograms every 6 months; notes from the past year from [facility] reviewed today. Apr, Insomnia due to medical condition (ICD-10 - G47. 01) Takes ativan rarely; prescribed by her oncologist. Apr, Screening for colon cancer (ICD-10 - Z12.11) Apr, History of anemia (ICD-10 - Z86.2) Related to chemotherapy; being following by her Oncologist. Apr, Dry eyes (ICD-10 - H04.123) Apr, Dyspepsia (ICD-10 - R10.13) PLAN OF TREATMENT Medication Medication Name Sig Start Date Stop Date Ativan 0.5 MG 1/2 tablet Orally as needed Aspirin 300mg 1 tab Oral daily Lotemax 0.5 % 1 drop into affected eye Ophthalmic twice a day Treatment Notes Assessment Notes Clinical Notes Annual physical exam Medical, surgical, and family histories were reviewed and updated. See preventative section. Ductal carcinoma in situ (DCIS) of left breast Being followed by her Oncologist with mammograms every 6 months; notes from the past year from [facility] reviewed today. Insomnia due to medical condition Takes ativan rarely; prescribed by her oncologist. History of anemia Related to chemother apy; being following by her Oncologist. Next Appt Details 1 year; 30 min Reason:Annual Provider Name:Debbie Perez, 2021-04-19 07:30:00 AM, [address] [place], [address], Follow Up:1 year; 30 minAnnual Insurance Providers Payer Name Payer Address Payer Phone Insured Name Patient Relati onship to Insured Coverage Start Date Coverage End Date [facility] [address] [address] [facility] [id number] [place] self
--- OUTSIDE RECORDS SUMMARY | 2020-06-16 09:09 | CCD ---
Author Author [facility] Organization 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 3496324854519277 Problem Insomnia due to medical condition G47.01 Active 71953152310482 ALLERGIES No Known Allergies ENCOUNTERS from 1960 to 2020-04-20 Encounter Location Date Provider Diagnosis [address] [address] Apr, Debbie Perez Screening for colon cancer Z12.11 IMMUNIZATIONS No Information SOCIAL HISTORY Tobacco Use: Social History Observation Description Date Details (start date - stop date) Never Smoker Sex Assigned At : Social History Observation Description Sex Assigned At Unknown Education: Question Answer Notes Level of Education: College Audit Question Answer Notes Total Score: 2 Interpretation: Alcohol Education Language: Question Answer Notes Languages spoken: French Baptist: Question Answer Notes Baptist 33 None Domestic Violence: Question Answer Notes [...] REASON FOR REFERRAL No Information VITAL SIGNS No information MEDICATIONS Medication SIG (Take, Route, Frequency, Duration) Notes Start Da te End Date Status Ativan 0.5 MG 1/2 tablet Orally as needed Active Lotemax 0.5 % 1 drop into affected eye Ophthalmic twice a day Active Aspirin 300mg 1 tab Oral daily Ac tive PROCEDURES No Information RESULTS No Results REASON FOR VISIT GI referral MEDICAL (GENERAL) HISTORY Type Description Date Medical History Intermittent HTN in the past Medical History Left breast DCIS - Dr. Mittal/Dr. Chun [place] Medical History Reflux due to chemo Medical History Insomnia since cancer diagnosis Medical History Sebaceous cysts on scalp - Dr. Antwon sandoval [place] Medical History ASCVD risk 2.7% in 10/2018 [...] Treatment Notes Treatm ent Clinical Notes Apr, Screening for colon cancer (ICD-10 - Z12.11) PLAN OF TREATMENT Medication Medication Name Sig Start Date Stop Date Ativan 0.5 MG 1/2 tablet Orally as needed Aspirin 300mg 1 tab Oral daily Lotemax 0.5 % 1 drop into affected eye Ophthalmic twice a day Next Appt Details Provider Name:Debbie Yanes Chris, 2021-04-19 07:30:00 AM, [address] [place], [address], Insurance Providers Payer Name Payer Address Payer Phone Insured Name Patient Relati onship to Insured Coverage Start Date Coverage End Date [employer] [address] [address] [facility] [id number] [place] self
--- OUTSIDE RECORDS SUMMARY | 2020-06-16 09:10 | CCD ---
Author Author [facility] Organization [facility] Address Unknown Phone Unavailable Care Team Providers Care Administration Assistant Name Role Phone Kaden, P Trenton Unavailable Unavailable Kaden, P Trenton Unavailable Unavailable Kaden, P Trenton Unavailable Unavailable Kaden, P Trenton Unavailable Unavailable Kaden, P Trenton Unavailable Unavailable Kaden, P Trenton Unavailable Unavailable Kaden, P Trenton Unavailable Unavailable Kaden, P Trenton Unavailable Unavailable Kaden, P Trenton Unavailable Unavailable Kaden, P Trenton Unavailable Unavailable Kaden, P Trenton Unavailable Unavailable Kaden, P Trenton Unavailable Unavailable Kaden, P Trenton Unavailable Unavailable Kaden, P Trenton Unavailable Unavailable Kaden, P Trenton Unavailable Unavailable Kaden, P Trenton Unavailable Unavailable Kaden, P Trenton Unavailable Unavailable Kaden, P Trenton Unavailable Unavailable Kaden, P Trenton Unavailable Unavailable Kaden, P Trenton Unavailable Unavailable Kaden, P Trenton Unavailable Unavailable Kaden, P Trenton Unavailable Unavailable Kaden, P Trenton Unavailable Unavailable Kaden, P Trenton Unavailable Unavailable Kaden, P Trenton Unavailable Unavailable Kaden, P Trenton Unavailable Unavailable Kaden, P Trenton Unavailable Unavailable Kaden, P Trenton Unavailable Unavailable Kaden, P Trenton Unavailable Unavailable Kaden, P Trenton Unavailable Unavailable Kaden, P Trenton Unavailable Unavailable Kaden, P Trenton Unavailable Unavailable Kaden, P Trenton Unavailable Unavailable Kaden, P Trenton Unavailable Unavailable Kaden, P Trenton Unavailable Unavailable Kaden, P Trenton Unavailable Unavailable Kaden, P Trenton Unavailable Unavailable Kaden, P Trenton Unavailable Unavailable Kaden, P Trenton Unavailable Unavailable Kaden, P Trenton Unavailable Unavailable Kaden, P Trenton Unavailable Unavailable Kaden, P Trenton Unavailable Unavailable Kaden, P Trenton Unavailable Unavailable Kaden, P Trenton Unavailable Unavailable Kaden, P Trenton Unavailable Unavailable Kaden, P Trenton Unavailable Unavailable Kaden, P Trenton Unavailable Unavailable Kaden, P Trenton Unavailable Unavailable Kaden, P Trenton Unavailable Unavailable SHEEHAN, Cam KRISHNAMURTHY MD Unavailable Unavailable SHEEHAN, Cam KRISHNAMURTHY MD Unavailable Unavailable SHEEHAN, Cam KRISHNAMURTHY MD Unavailable Unavailable SHEEHAN, Cam KRISHNAMURTHY MD Unavailable Unavailable SHEEHAN, Cam KRISHNAMURTHY MD Unavailable Unavailable SHEEHAN, Cam KRISHNAMURTHY MD Unavailable Unavailable SHEEHAN, Cam KRISHNAMURTHY MD Unavailable Unavailable SHEEHAN, Cam KRISHNAMURTHY MD Unavailable Unavailable SHEEHAN, Cam KRISHNAMURTHY MD Unavailable Unavailable SHEEHAN, Cam KRISHNAMURTHY MD Unavailable Unavailable SHEEHAN, Cam KRISHNAMURTHY MD Unavailable Unavailable SHEEHAN, Cam KRISHNAMURTHY MD Unavailable Unavailable SHEEHAN, Cam KRISHNAMURTHY MD Unavailable Unavailable SHEEHAN, Cam KRISHNAMURTHY MD Unavailable Unavailable SHEEHAN, Cam KRISHNAMURTHY MD Unavailable Unavailable SHEEHAN, Cam KRISHNAMURTHY MD Unavailable Unavailable SHEEHAN, Cam KRISHNAMURTHY MD Unavailable Unavailable SHEEHAN, Cam KRISHNAMURTHY MD Unavailable Unavailable SHEEHAN, Cam KRISHNAMURTHY MD Unavailable Unavailable SHEEHAN, Cam KRISHNAMURTHY MD Unavailable Unavailable SHEEHAN, Cam KRISHNAMURTHY MD Unavailable Unavailable SHEEHAN, Cam KRISHNAMURTHY MD Unavailable Unavailable SHEEHAN, Cam KRISHNAMURTHY MD Unavailable Unavailable SHEEHAN, Cam KRISHNAMURTHY MD Unavailable Unavailable SHEEHAN, Cam KRISHNAMURTHY MD Unavailable Unavailable SHEEHAN, Cam KRISHNAMURTHY MD Unavailable Unavailable SHEEHAN, Cam KRISHNAMURTHY MD Unavailable Unavailable SHEEHAN, Cam KRISHNAMURTHY MD Unavailable Unavailable SHEEHAN, Cam KRISHNAMURTHY MD Unavailable Unavailable SHEEHAN, Cam KRISHNAMURTHY MD Unavailable Unavailable SHEEHAN, Cam KRISHNAMURTHY MD Unavailable Unavailable SHEEHAN, Cam KRISHNAMURTHY MD Unavailable Unavailable SHEEHAN, Cam KRISHNAMURTHY MD Unavailable Unavailable SHEEHAN, Cam KRISHNAMURTHY MD Unavailable Unavailable SHEEHAN, Cam KRISHNAMURTHY MD Unavailable Unavailable SHEEHAN, Cam KRISHNAMURTHY MD Unavailable Unavailable SHEEHAN, Cam KRISHNAMURTHY MD Unavailable Unavailable SHEEHAN, Cam KRISHNAMURTHY MD Unavailable Unavailable SHEEHAN, Cam KRISHNAMURTHY MD Unavailable Unavailable SHEEHAN, Cam KRISHNAMURTHY MD Unavailable Unavailable SHEEHAN, Cam KRISHNAMURTHY MD Unavailable Unavailable SHEEHAN, Cam HERNANDEZCI MD Unavailable Unavailable Cam SHEEHAN MD Unavailable Unavailable NOLA, TORIN DELANEY MD Unavailable Unavailable NOLA, TORIN DELANEY MD Unavailable Unavailable NOLA, TORIN DELANEY MD Unavailable Unavailable NOLA, TORIN DELANEY MD Unavailable Unavailable NOLA, TORIN DELANEY MD Unavailable Unavailable NOLA, TORIN DELANEY MD Unavailable Unavailable NOLA, TORIN DELANEY MD Unavailable Unavailable NOLA, TORIN DELANEY MD Unavailable Unavailable NOLA, TORIN DELANEY MD Unavailable Unavailable NOLA, TORIN DELANEY MD Unavailable Unavailable NOLA, TORIN DELANEY MD Unavailable Unavailable NOLA, TORIN DELANEY MD Unavailable Unavailable NOLA, TORIN DELANEY MD Unavailable Unavailable NOLA, TORIN DELANEY MD Unavailable Unavailable NOLA, TORIN DELANEY MD Unavailable Unavailable NOLA, TORIN DELANEY MD Unavailable Unavailable NOLA, TORIN DELANEY MD Unavailable Unavailable NOLA, TORIN DELANEY MD Unavailable Unavailable NOLA, TORIN DELANEY MD Unavailable Unavailable NOLA, TORIN DELANEY MD Unavailable Unavailable NOLA, TORIN DELANEY MD Unavailable Unavailable NOLA, TORIN DELANEY MD Unavailable Unavailable NOLA, TORIN DELANEY MD Unavailable Unavailable NOLA, TORIN DELANEY MD Unavailable Unavailable NOLA, TORIN DELANEY MD Unavailable Unavailable NOLA, TORIN DELANEY MD Unavailable Unavailable NOLA, TORIN DELANEY MD Unavailable Unavailable NOLA, TORIN DELANEY MD Unavailable Unavailable NOLA, TORIN DELANEY MD Unavailable Unavailable NOLA, TORIN DELANEY MD Unavailable Unavailable NOLA, TORIN DELANEY MD Unavailable Unavailable NOLA, TORIN DELANEY MD Unavailable Unavailable NOLA, TORIN DELANEY MD Unavailable Unavailable NOLA, TORIN DELANEY MD Unavailable Unavailable NOLA, TORIN DELANEY MD Unavailable Unavailable NOLA, TORIN DELANEY MD Unavailable Unavailable NOLA, TORIN DELANEY MD Unavailable Unavailable NOLA, TORIN DELANEY MD Unavailable Unavailable NOLA, TORIN DELANEY MD Unavailable Unavailable NOLA, TORIN DELANEY MD Unavailable Unavailable NOLA, TORIN DELANEY MD Unavailable Unavailable NOLA, TORIN DELANEY MD Unavailable Unavailable NOLA, TORIN DELANEY MD Unavailable Unavailable NOLA, TORIN DELANEY MD Unavailable Unavailable NOLA, TORIN DELANEY MD Unavailable Unavailable NOLA, TORIN DELANEY MD Unavailable Unavailable NOLA, TORIN DELANEY MD Unavailable Unavailable NOLA, TORIN DELANEY MD Unavailable Unavailable NOLA, TORIN DELANEY MD Unavailable Unavailable NOLA, TORIN DELANEY MD Unavailable Unavailable NOLA, TORIN DELANEY MD Unavailable Unavailable NOLA, TORIN DELANEY MD Unavailable Unavailable NOLA, TORIN DELANEY MD Unavailable Unavailable NOLA, TORIN DELANEY MD Unavailable Unavailable NOLA, TORIN DELANEY MD Unavailable Unavailable NOLA, TORIN DELANEY MD Unavailable Unavailable NOLA, TORIN DELANEY MD Unavailable Unavailable NOLA, TORIN DELANEY MD Unavailable Unavailable NOLA, TORIN DELANEY MD Unavailable Unavailable NOLA, TORIN DELANEY MD Unavailable Unavailable NOLA, TORIN DELANEY MD Unavailable Unavailable NOLA, TORIN DELANEY MD Unavailable Unavailable NOLA, TORIN DELANEY MD Unavailable Unavailable NOLA, TORIN DELANEY MD Unavailable Unavailable NOLA, TORIN DELANEY MD Unavailable Unavailable NOLA, TORIN DELANEY MD Unavailable Unavailable NOLA, TORIN DELANEY MD Unavailable Unavailable NOLA, TORIN DELANEY MD Unavailable Unavailable NOLA, TORIN DELANEY MD Unavailable Unavailable NOLA, TORIN DELANEY MD Unavailable Unavailable NOLA, TORIN DELANEY MD Unavailable Unavailable NOLA, TORIN DELANEY MD Unavailable Unavailable NOLA, TORIN DELANEY MD Unavailable Unavailable Abhinav AGUILAR DO Unavailable [phone] Abhinav AGUILAREW DO Unavailable [phone] Abhinav AGUILAREW DO Unavailable [phone] Abhinav AGUILAREW DO Unavailable +[phone] Abhinav AGUILAREW DO Unavailable +[phone] Abhinav AGUILAREW DO Unavailable +[phone] Abhinav AGUILAREW DO Unavailable +[phone] Abhinav AGUILAREW DO Unavailable +[phone] Abhinav AGUILAREW DO Unavailable +[phone] Abhinav AGUILAR DO Unavailable [phone] BURAKAbhinav DO Unavailable +[phone] Abhinav AGUILAR DO Unavailable [phone] BURAKAbhinav DO Unavailable +[phone] BURAKAbhinav DO Unavailable +[phone] BURAKAbhinav DO Unavailable +[phone] BURAKAbhinav DO Unavailable +[phone] BURAKAbhinav DO Unavailable +[phone] BURAKAbhinav DO Unavailable +[phone] Abhinav AGUILAR DO Unavailable +[phone] Abhinav AGUILAR DO Unavailable +[phone] Abhinav AGUILAR DO Unavailable +[phone] Re-disclosure Warning The records that you are about to access may contain information from federally-assisted alcohol or drug abuse programs. If such information is present, then the following federally mandated warning applies: This information has been disclosed to you from records protected by federal confidentiality rules (42 CFR part 2). The federal rules prohibit you from making any further disclosure of this information unless further disclosure is expressly permitted by the written consent of the person to whom it pertains or as otherwise permitted by 42 CFR part 2. A general authorization for the release of medical or other information is NOT sufficient for this purpose. The Federal rules restrict any use of the information to criminally investigate or prosecute any alcohol or drug abuse patient.The records that you are about to access may contain highly sensitive health information, the redisclosure of which is protected by Article 27-F of the [facility] Public Health law. If you continue you may have access to information: Regarding HIV / AIDS; Provided by facilities licensed or operated by the [facility] Office of Mental Health; or Provided by the [facility] Office for People With Developmental Disabilities. If such information is present, then the following [facility] mandated warning applies: This information has been disclosed to you from confidential records which are protected by state law. State law prohibits you from making any further disclosure of this information without the specific written consent of the person to whom it pertains, or as otherwise permitted by law. Any unauthorized further disclosure in violation of state law may result in a fine or fci sentence or both. A general authorization for the release of medical or other information is NOT sufficient authorization for further disc losure. Allergies and Adverse Reactions Type Description Substance Reaction Status Data Source(s ) Allergy to substance No Known Allergies No known allergies (situation ) MARIA ALEJANDRA (Tate Murillo MD [facility]) Family History Family Member Name Family Member Gender Family Member Status Date o f Status Description Data Source(s) Unknown Unknown Problem MEDENT (Arnie rubio UNDERGRADUATE ADVISOR) Encounters Encounter Providers Location Date Indications Data Source(s ) Outpatient Attender: ELAINA VACA MDReferrer: Trenton spain [id number] 05/26/2020 02:57:43 PM EST [facility] Outpatient Attender: ELAINA VACA MDReferrer: Trenton spain [id number] 05/26/2020 02:36:57 PM EST [facility] Outpatient Attender: ELAINA VACA MDReferrer: Trenton spain [id number] 05/26/2020 04:30:55 AM EST [facility] Outpatient Attender: ELAINA HERNANDEZeferrer: Trenton spain [id number] 05/21/2020 04:18:00 AM EST [facility] [place] [address] [facility] [place] [address] 04/19/2020 12:00:00 AM EST eCW1 ([facility]) [place]patient [address] [facility] [address] 04/18/2020 12:00:00 AM EST eCW1 ([facility]) Outpatient<td ID="encounterTypeDescripti onID0">NEW PATIENT WITH REFERRAL</td><td>Irina Aguilar DO</td><td>Tate Meier MD [facility]</td><td>03/23/2020</td><td>2:10PM</td><td>3:39PM</td><td><content ID="encounterDiagnosisID0-0">Dry Eye Syndrome</content>, <content ID="encounterDiagnosisID0-1">Cataract Senile Nuclear</content>, <content ID="encounterDiagnosisID0-2">Blepharitis Squamous</content>, <content ID="encounterDiagnosisID0-3">Vitreous Disorders Degeneration</content></td> Attender: IRINA Cesar MD [facility] 03/23/2020 02:10:00 PM EST - 03/23/2020 03:39:00 PM EST Vitreous Disorders DegenerationBlepharit is SquamousCataract Senile NuclearDry Eye Syndrome MARIA ALEJANDRA (Tate Murillo MD [facility]) Vitreous Disorders Degeneration Blepharitis Squamous Cataract Senile Nuclear Dry Eye Syndrome Outpatient Attender: ELAINA VACA MDReferrer: Trenton spain [id number] 02/26/2020 12:05:57 PM EDT [facility] Outpatient Attender: ELAINA VACA MDReferrer: Trenton spain [id number] 02/26/2020 12:01:01 PM EDT [facility] Outpatient Attender: ELAINA VACA MDReferrer: Trenton spain [id number] 02/23/2020 01:13:04 PM EDT [facility] Outpatient Attender: ELAINA VACA MDReferrer: Trenton spain [id number] 02/16/2020 02:47:28 PM EDT [facility] Outpatient Attender: ELAINA VACA MDReferrer: Trenton spain [id number] 02/15/2020 08:20:20 AM EDT [facility] Outpatient Attender: ELAINA VACA MDReferrer: Trenton spain [id number] 02/10/2020 05:25:41 AM EDT [facility] [address] [address] 08/31/2019 12:00:00 AM EDT eCW1 ([facility]) Outpatient 08/20/2019 11:30:00 AM EDT [facility] Outpatient Attender: RAGHU Gaitan Woman software development test engineer 09:35:00 AM EDT MEDENT (Arnie Woman UNDERGRADUATE ADVISOR) [facility]ender: Trenton Hutchisondmitter: Trenton Coréts bertReferrer: Trenton Alfonso [facility] 01/29/2019 11:16:25 AM EDT - 02/25/2019 02:03:[address] [facility] Patient discharged. Medications Medication Brand Name Start Date Product Form Dose Route Admi nistrative Instructions Pharmacy Instructions Status Indications Reaction Description Data Source(s) 17.5-3.13-1.6 gram 06/10/2020 12:00:00 AM EST recon soln 354 TAKE PER DOCTOR'S BOWEL PREP INSTRUCTIONS TAKE PER DOCTOR'S BOWEL PREP INSTRUCTIONS SOLD: 06/13/2020 [facility] 0.5 % 03/24/2020 12:00:00 AM EST drops,gel 5 INSTILL 1 DROP INTO BOTH EYES TWICE A DAY INSTILL 1 DROP INTO BOTH EYES TWICE A DAY SOLD: 03/30/2020 [facility] loteprednol etabonate 0.005 MG/MG Ophtha lmic Gel [Lotemax] Lotemax 0.5% Ophthalmic Gel Lotemax 0.5% Ophthalmic Gel 03/23/2020 12:00:00 AM EST active loteprednol etabonate 0.005 MG/M G Ophthalmic Gel [Lotemax] MARIA ALEJANDRA (Tate Murillo MD [facility]) Aspirin 300 MG Oral Tablet Aspirin 300 MG Oral Tablet 2019 12:00:00 AM EST 1 active Aspirin MARIA ALEJANDRA (Tate Murillo MD [facility]) Lorazepam 0.5 MG Oral Tablet [Ativan] Ativan 0.5 MG Or al Tablet Ativan 0.5 MG Oral Tablet 03/23/2020 12:00:00 AM EST 1 active lorazepam 0.5 MG Oral Tablet [Ativan] MARIA ALEJANDRA (Tate Murillo MD [facility]) Insurance Providers Payer name Policy type / Coverage type Policy ID Covered libertarian ID Covered libertarian's relationship to araujo Policy Araujo Plan Information [facility] [id number] [facility] Primary [id number] [employer] [place] Other 0 Self 0 UMR [facility] [id number] SP [id number] UMR [id number] Carmen [id number] R [id number] Carmen [id number] R [id number] ANSI-Commercial [id number] ANSI-Commercial [id number] PI PI R -O/P [id number] 18 [id number] R [facility] [id number] SP [id number] Medicaid [place] Medigap Part B [id number] Self [id number] [facility] Community Plan Health Maintenance Organization (HMO) [id number] Self [id number] BS [employer] Medigap Part B [id number] Self Y [id number] BS Of [place] Medigap Part B [id number] Self [id number] Umr Commercial [id number] Self [id number] [facility] CIGNA INSURANCE CO O [id number] S [id number] CIGNA INSURANCE CO [id number] SP 1 [id number] CIGNA INSURANCE CO [id number] SP 1 [id number] [facility] [id number] SP [id number] [facility] Community Plan Commercial Self UNHC COMMUNITY PLAN MCDO [id number] SP [id number] BS [id number] SP [id number] Problems, Conditions, and Diagnoses Code Display Name Description Problem Type Effective Dates Data Source(s) Z86.2 [id number] History of anemia Problem 04/18/2020 12:00:0 0 AM EST eCW1 ([facility]) H04.123 [id number] Dry eyes Problem 04/18/2020 12:00:00 AM ES T eCW1 ([facility]) 379.21 Vitreous Disorders Degeneration Vitreous Disorders Deg eneration Problem 03/23/2020 12:00:00 AM EST MARIA ALEJANDRA (Tate Murillo MD [facility]) 375.15 Dry Eye Syndrome Dry Eye Syndrome Problem 03/23/2020 12 :00:00 AM EST MARIA ALEJANDRA (Tate Murillo MD [facility]) 373.02 Blepharitis Squamous Blepharitis Squamous Problem 03/23/2020 12:00:00 AM EST MARIA ALEJANDRA (Tate Murillo MD [facility]) 366.16 Cataract Senile Nuclear Cataract Senile Nuclear Proble m 03/23/2020 12:00:00 AM EST MARIA ALEJANDRA (Tate Murillo MD [facility]) Surgeries/Procedures Procedure Description Date Indications Data Source(s) Surgical / procedural history 1990, 2 Lumpe ctomies 8441-1287, Surgical / procedural history 1990, 2 Lumpectomies 8236-9683, 03/23/2020 12:00:00 AM EST MARIA ALEJANDRA (Tate ley MD [facility]) Comprehensive Eye Exam Comprehensive Eye Exam 03/23/2020 12:00:00 A M EST MARIA ALEJANDRA (Tate Murillo MD [facility]) Results ID Date Data Source [id number] 06/11/2020 10:30:00 AM EST [facility] Name Value Range Interpretation Code Description Data Shantell rce(s) Supporting Document(s) SARS coronavirus 2 RNA Not Detected [facility] This lab was ordered by [facility] and reported by [facility]. ID Date Data Source [id number] 05/26/2020 03:50:12 PM EST [facility] Name Value Range Interpretation Code Description Data Shantell rce(s) Supporting Document(s) *Follow Up Visit BRENDON v1 [facility] GWTCFj2aVyVYFtUkx7prGBnhIIJsb5ClFTf2FW3IR4QmI8ESBQfpaIWxL12aXAGmfLLxzp6HL0DuPQgi 1c3 [file] G35EZYPVZAR9pSWiwfKORIVZvh6JuAdhZUNdbQNSPE hOx5WzVDXfDnis+5eRAklXKMsKEHA0hNMbKFJdiDRGQPcKg3RcKXMwXFo4OazAwXCpkxm/Tyk9cPIobl gPE12GDW/ovGBm2umVEUKwEbakd3TVabI6N3ZV9sNkUu4UJLS0b53aYAZxnvls1iReXe34dl+5rgKsej 3BIWGytK2MZyCCsuDIASSXyBOezDrk4PxWZasLs2Fb XlKvfM3TEkHHnqlcLYhe3GLR8spZwatphWSWQtHMSDz7oLMMaRrPYzpEm6B6U7EaDKADSrpKuUsIva3j Y0HWsBF4rSAYtg2WTnu+Rmwjhk9jbl6AtVHr1nNAUzRRfQfKKs4rCJn0EyHYksSr7SdatTXq2vXRXvUD oTmVXv3iMPkpPMtO/PCjz+Q233Oi8bRg3Ng6rTGJhD emergency medical services coordinator+hdGg2xo79KLHM3sqCCojhfsV637Pm1oQWWjzHse+HxOVh3Hr6mFTFp8Ex3raPuRvTU6pTBCCoIR57 [file] BvorBvPO1zT2ipOCtgGvlYVHyJgbRqNYEP54Ff4nQCegcy2hkd3BjkV3m3SRYqvl5IxV922Ekan5w+emergency medical services coordinator [file] IKPTjhH5j2RMU5FL0AXm4RNk5By1PrmaM5kmYnFMkcGpRsDRPSJbPmXM3XKIf= ID Date Data Source [id number] 03/04/2020 12:00:00 AM EDT [facility] Name Value Range Interpretation Code Description Data Shantell rce(s) Supporting Document(s) SARS-CoV2 Rapid Antigen [facility] This lab was ordered by [facility] and reported by [facility]. ID Date Data Source [id number] 08/20/2019 12:33:00 PM EDT [facility] MDR 5000 [facility] OFFICE MRI BRAIN WITH AND WITHOUT CONTRAST CLINICAL STATEMENT: Malignant neoplasm of the left female breast, dizziness TECHNIQUE: Multiplanar, multisequential imaging of the brain was performed with and without the administration of intravenous contrast. The patient was administered 10 mL ProHance intravenously/10 mL vial. COMPARISON: None FINDINGS: No acute infarct or restricted diffusion is seen. Very minimal FLAIR signal abnormality is seen in the periventricular and subcortical white matter, nonspecific however most likely sequela of very minimal chronic small vessel ischemic disease or chronic migraine headaches. No intracranial hemorrhage or midline shift is identified. No intra or extra-axial fluid collections are seen. The ventricles are within normal limits. Visualized orbits, paranasal sinuses and mastoid air cells are unremarkable. IMPRESSION: No evidence of intracranial metastatic disease. Professional interpretation performed at [facility] . Name Value Range Interpretation Code Description Data Shantell rce(s) Supporting Document(s) Procedure Social History Code Duration Value Status Description Data Source(s ) Smoking 04/18/2020 12:00:00 AM EST Never Smoker completed Never S moker eCW1 ([facility]) Smoking 04/18/2020 12:00:00 AM EST Never Smoker completed Never S moker eCW1 ([facility]) Smoking 03/23/2020 03:43:00 PM EST Never smoked tobacco (findi ng) completed Never smoked tobacco (finding) MARIA ALEJANDRA (Tate Murillo MD [facility]) Vital Signs ID Date Data Source UNK Name Value Range Interpretation Code Description Data Source(s) Body surface area Derived from formula 1.71 m2 1.71 m2 [facility] Body weight 69.457 kg 69.457 kg [facility] ([facility]) [place] body weight 110 [lb_av] 110 [lb_av] [facility] T ([facility]) Body mass index (BMI) [Ratio] 28.0 kg/m2 28.0 k g/m2 [facility] ([facility]) Body weight 153.12 [lb_av] 153.12 [lb_av] [facility] Body height 62 [in_i] 62 [in_i] [facility] 5'2" Heart rate 87 /min 87 /min [facility] ([facility]) Diastolic blood pressure 87 mm[Hg] 87 mm[Hg] [facility] ([facility]) Systolic blood pressure 138 mm[Hg] 138 mm[Hg] M [facility] Body height 62 [in_i] 62 [in_i] eCW1 ([facility]) Body weight 148 [lb_av] 148 [lb_av] eCW1 ([facility]) Diastolic blood pressure 80 mm[Hg] 80 mm[Hg] eCW1 ([facility]) Systolic blood pressure 128 mm[Hg] 128 mm[Hg] e CW1 ([facility]) Body temperature 96.4 [degF] 96.4 [degF] eCW1 ( [facility]) Respiratory rate 18 /min 18 /min eCW1 ([facility]) Heart rate 78 /min 78 /min eCW1 ([facility]) Body mass index (BMI) [Ratio] 27.07 kg/m2 27.07 kg/m2 eCW1 ([facility]) Body surface area 1.62 m2 1.62 m2 MEDENT (Arnie Woman UNDERGRADUATE ADVISOR) Body mass index (BMI) [Ratio] 25.6 kg/m2 25.6 k g/m2 MED[facility] (Gaitan Woman UNDERGRADUATE ADVISOR) Body weight 138.00 [lb_av] 138.00 [lb_av] MEDEN T (Gaitan Woman UNDERGRADUATE ADVISOR) Body height 61.5 [in_i] 61.5 [in_i] MEDENT (Usha collins Woman UNDERGRADUATE ADVISOR) 5'1.50" Diastolic blood pressure 82 mm[Hg] 82 mm[Hg] MEDENT (Arnie Woman UNDERGRADUATE ADVISOR) Systolic blood pressure 122 mm[Hg] 122 mm[Hg] M ED[facility] (Arnie Woman UNDERGRADUATE ADVISOR) Patient Treatment Plan of Care Planned Activity Planned Date Details Description Data Source (s) loteprednol etabonate 0.005 MG/MG Ophthalmic Gel [Lote max] 03/23/2020 12:00:00 AM DAVONTE BESS (Tate Murillo MD [facility])
--- NOTE | 2020-06-16 10:12 | ROOR ---
Patient Name: Caroline Enriquez Procedure Date: 06/16/2020 9:42 AM Date of : 1960 Age: 59 Room: [facility] Gender: Female Note Status: Finalized Procedure: Colonoscopy Indications: Screening for colorectal malignant neoplasm Providers: Thaddeus Lund Jr, MD Referring MD: Debbie Perez MD Requesting Provider: Medicines: Propofol per Anesthesia Complications: No immediate complications. Procedure: Pre-Anesthesia Assessment: - Prior to the procedure, a History and Physical was performed, and patient medications and allergies were reviewed. The patient is competent. The risks and benefits of the procedure and the sedation options and risks were discussed with the patient. All questions were answered and informed consent was obtained. Patient identification and proposed procedure were verified by the physician and the nurse in the pre-procedure area and in the procedure room. Mental Status Examination: alert and oriented. Airway Examination: normal oropharyngeal airway and neck mobility. Respiratory Examination: clear to auscultation. CV Examination: normal. ASA Grade Assessment: II - A patient with mild systemic disease. After reviewing the risks and benefits, the patient was deemed in satisfactory condition to undergo the procedure. The anesthesia plan was to use moderate sedation / analgesia (conscious sedation). Immediately prior to administration of medications, the patient was re-assessed for adequacy to receive sedatives. The heart rate, respiratory rate, oxygen saturations, blood pressure, adequacy of pulmonary ventilation, and response to care were monitored throughout the procedure. The physical status of the patient was re-assessed after the procedure. The Colonoscope was introduced through the anus and advanced to the cecum, identified by appendiceal orifice and ileocecal valve. The colonoscopy was performed without difficulty. The patient tolerated the procedure well. The quality of the bowel preparation was adequate. Findings: The rectum, recto-sigmoid colon, descending colon, transverse colon, ascending colon, cecum, appendiceal orifice and ileocecal valve appeared normal. Multiple small and large-mouthed diverticula were found in the sigmoid colon. Impression: - The rectum, recto-sigmoid colon, descending colon, transverse colon, ascending colon, cecum, appendiceal orifice and ileocecal valve are normal. - Diverticulosis in the sigmoid colon. - No specimens collected. Recommendation: - Discharge patient to home (ambulatory). - Repeat colonoscopy in 10 years for screening purposes. Procedure Code(s): --- Professional --- 73431, Colonoscopy, flexible; diagnostic, including collection of specimen(s) by brushing or washing, when performed (separate procedure) Diagnosis Code(s): --- Professional --- Z12.11, Encounter for screening for malignant neoplasm of colon K57.30, Diverticulosis of large intestine without perforation or abscess without bleeding CPT copyright 2019 [employer]. All rights reserved. The codes documented in this report are preliminary and upon medical billing coder review may be revised to meet current compliance requirements. Thaddeus Lund MD Thaddeus Lund Jr, MD 06/16/2020 10:12:06 AM Electronically signed by Thaddeus Lund Jr, MD Number of Addenda: 0 Note Initiated On: 06/16/2020 9:42 AM Estimated Blood Loss: Estimated blood loss: none.
[2020-06-16 10:35] VITALS: BP 136/97
== END 2020-06-16 10:42 | disposition home or self-care (01) ==
LOC: M OPP 09:05
PROVIDERS: ATTEND Surgery
DX: Z12.11 Encounter for screening for malignant neoplasm of colon (principal); K57.30 Diverticulosis of large intestine without perforation or abscess without bleeding; I10 Essential (primary) hypertension; Z85.3 Personal history of malignant neoplasm of breast; Z92.21 Personal history of antineoplastic chemotherapy; Z92.3 Personal history of irradiation; Z79.82 Long term (current) use of aspirin

== ENCOUNTER → 2021-05-01 | Outpatient (REF) ==
[~2021-05-01] MED LIST changes: -LIDOCAINE 2% 100MG/5ML SDV (FOR ANES.) As Ordered ONE; -NS 1,000 ML IV ONE; -SIMETHICONE 40MG/0.6ML DROPS 30ML As Ordered ONE; -propofoL 200 MG/20 ML VIAL As Ordered ONE
== END ==
LOC: M LABSMTC 10:44
PROVIDERS: ATTEND Pediatrics
DX: Z20.822 Contact with and (suspected) exposure to COVID-19 (principal)

== ENCOUNTER → 2021-07-25 | Outpatient (CLI) | payer OTHER ==
[2021-07-25 11:09] LABS: ALBUMIN 3.9 GM/DL (3.2-5.2); ALT/SGPT 21 U/L (12-78); BILIRUBIN,TOTAL 0.6 MG/DL (0.2-1.0); BLOOD UREA NITROGEN 12 MG/DL (7-18); CALCIUM LEVEL 9.6 MG/DL (8.8-10.2); CARBON DIOXIDE LEVEL 32 MEQ/L (21-32); CHLORIDE LEVEL 109 MEQ/L (98-107); CHOLESTEROL LEVEL 274 MG/DL (<200); CHOLESTEROL RISK RATIO 4.566 (<5); CREATININE FOR GFR 0.73 MG/DL (0.55-1.30); GLOMERULAR FILTRATION RATE > 60.0 (>45); GLUCOSE, FASTING 89 MG/DL (70-100); HDL CHOLESTEROL 60 MG/DL (>40); LDL CHOLESTEROL 189 MG/DL (<100); NON-HDL-C 214 MG/DL; POTASSIUM SERUM 4.7 MEQ/L (3.5-5.1); SODIUM LEVEL 143 MEQ/L (136-145); TRIGLYCERIDES LEVEL 125 MG/DL (<150)
== END ==
LOC: M PLALAB 08:46
PROVIDERS: ATTEND Family Medicine
DX: Z13.220 Encounter for screening for lipoid disorders (principal)

== ENCOUNTER → 2022-07-03 | Outpatient (CLI) | payer OTHER ==
[2022-07-03 13:47] LABS: BASO % 0.4 % (0.0-1.0); EOS # 0.1 10^3/uL (0.0-0.5); EOS % 2.8 % (0.0-3.0); HEMATOCRIT 43.8 % (36.0-47.0); HEMOGLOBIN 14.2 g/dl (12.0-15.5); LYMPH % 20.2 % (24.0-44.0); MEAN CORPUSCULAR HEMOGLOBIN 28.2 pg (27.0-33.0); MEAN CORPUSCULAR HGB CONC 32.4 g/dl (32.0-36.5); MEAN CORPUSCULAR VOLUME 86.9 fl (80.0-96.0); MONO # 0.4 10^3/uL (0.0-0.8); MONO % 8.3 % (2.0-8.0); NEUTROPHILS # 3.2 10^3/uL (1.5-8.5); NEUTROPHILS % 67.7 % (36.0-66.0); PLATELET COUNT, AUTOMATED 247 10^3/uL (150-450); RED BLOOD COUNT 5.04 10^6/uL (4.00-5.40); WHITE BLOOD COUNT 4.7 10^3/uL (4.0-10.0)
[2022-07-03 13:51] LABS: ALBUMIN 3.7 G/DL (3.2-5.2); ALKALINE PHOSPHATASE 75 U/L (46-116); ALT/SGPT 15 U/L (7.0-40); AST/SGOT 16 U/L (<34); BILIRUBIN,TOTAL 0.9 MG/DL (0.3-1.2); BLOOD UREA NITROGEN 10 MG/DL (9-23); CALCIUM LEVEL 9.7 MG/DL (8.3-10.6); CARBON DIOXIDE LEVEL 30 MMOL/L (20-31); CHLORIDE LEVEL 106 MMOL/L (98-107); CHOLESTEROL LEVEL 231 MG/DL (<200); CHOLESTEROL RISK RATIO 4.05 (<5); CREATININE FOR GFR 0.83 MG/DL (0.55-1.30); GLOMERULAR FILTRATION RATE > 60.0 (>45); GLUCOSE, FASTING 92 MG/DL (74-106); HDL CHOLESTEROL 56.9 MG/DL (>40); NON-HDL-C 174 MG/DL; POTASSIUM SERUM 4.6 MMOL/L (3.5-5.1); SODIUM LEVEL 141 MMOL/L (136-145)
[2022-07-03 15:29] LABS: LDL CHOLESTEROL 154.5 MG/DL (<100); TOTAL PROTEIN 6.8 G/DL (5.7-8.2); TRIGLYCERIDES LEVEL 98 MG/DL (<150)
== END ==
LOC: M PLALAB 09:59
PROVIDERS: ATTEND Physician Assistant
DX: Z13.220 Encounter for screening for lipoid disorders (principal)

== ENCOUNTER → 2022-11-15 | Outpatient (CLI) | payer OTHER | LOC: M WHC 10:11 | PROVIDERS: ATTEND Physician Assistant | DX: Z78.0 Asymptomatic menopausal state (principal) ==

== ENCOUNTER → 2023-04-19 | Outpatient (CLI) | payer OTHER | LOC: M PLAIMG 15:13 | PROVIDERS: ATTEND Physician Assistant | DX: R05.3 Chronic cough (principal) ==

== ENCOUNTER → 2023-07-04 | Outpatient (REF) | payer OTHER | LOC: M SFHCWAGY 13:09 | PROVIDERS: ATTEND Family Medicine | DX: Z12.4 Encounter for screening for malignant neoplasm of cervix (principal) | CPT/HCPCS: 87624; G0123 ==

== ENCOUNTER → 2024-09-03 | Outpatient (CLI) | payer OTHER ==
[2024-09-03 10:54] LABS: ALBUMIN 3.6 G/DL (3.2-5.2); BILIRUBIN,TOTAL 0.5 MG/DL (0.3-1.2); CHOLESTEROL RISK RATIO 4.33 (<5); CREATININE FOR GFR 0.75 MG/DL (0.55-1.30); GLOMERULAR FILTRATION RATE 88.9 (>45); HDL CHOLESTEROL 53.1 MG/DL (>40); LDL CHOLESTEROL 150.1 MG/DL (<100); NON-HDL-C 176.9 MG/DL; POTASSIUM SERUM 4.3 MMOL/L (3.5-5.1); TOTAL PROTEIN 6.7 G/DL (5.7-8.2)
== END ==
LOC: M PLALAB 08:48
PROVIDERS: ATTEND Family Medicine
DX: E78.00 Pure hypercholesterolemia, unspecified (principal)